=== PATIENT | male | born 1940 | race Caucasian/White ===

== ENCOUNTER 2018-01-01 10:05 | Emergency (ER) | payer OTHER, MEDICARE ==
[2018-01-01 10:20] VITALS: BP 117/76; PULSE 72; BMI 26.7
--- NOTE | 2018-01-01 10:39 | PDOC ---
History of Present Illness - General Chief Complaint: Laceration Stated Complaint: LEFT PALM LACERATION Time Seen by Provider: 01/01/18 10:33 History Source: Patient Exam Limitations: No Limitations - History of Present Illness Initial Comments: 77 yo M history polycythemia presents with laceration to the L hand. He states he was opening a can with a knife last night 7pm, accidentally stabbed his left hand with the knife. C/o mild numbness to the L 4th finger. He has been holding pressure on the wound since last night, but was unable to come to ED, as his relies on him and he was unable to leave her. The bleeding had stopped last night, but then started again this morning. Denies lightheadedness, weakness. Past History - Past Medical History Allergies/Adverse Reactions: Allergies Allergy/AdvReac Type Severity Reaction Status Date / Time hydroxyurea [From Hydrea] Allergy Severe Laberynthit Verified 01/01/18 12:07 is/Fever hay fever Allergy Unknown Uncoded 01/01/18 12:07 Home Medications: Ambulatory Orders Aspirin [Aspir 81] 162 mg PO DAILY #1 05/29/13 Cephalexin Monohydrate [Keflex -] 500 mg PO Q6H #28 capsule 01/01/18 Anemia: Yes (POLYCYTHEMIA VERA) COPD: No Other medical history: LYME'S DISEASE - Suicide/Smoking/Psychosocial Hx Smoking History: Never smoked Number of Cigarettes Smoked Daily: 0 Hx Alcohol Use: No Drug/Substance Use Hx: No Substance Use Type: None Review of Systems - Review of Systems Able to Perform ROS?: Yes Comments:: GENERAL/CONSTITUTIONAL: No fever or chills. No weakness. MUSCULOSKELETAL: No joint or muscle swelling or pain. No neck or back pain. SKIN: +L hand laceration NEUROLOGIC: No headache, vertigo, loss of consciousness, or change in strength/ sensation. ENDOCRINE: No increased thirst. No abnormal weight change. HEMATOLOGIC/LYMPHATIC: +Polycythemia. On aspirin. *Physical Exam - Vital Signs Last Vital Signs Temp Pulse Resp BP Pulse Ox 72 16 117/76 01/01/18 10:12 01/01/18 10:12 01/01/18 10:12 - Physical Exam Comments: GENERAL: Awake, alert, and fully oriented, in no acute distress HEAD: No signs of trauma EXTREMITIES: L hand with 1.5 cm lac with intermittent bleeding when he moves the hand. Dec sensation 4th fingertip. Remainder of extremities with normal range of motion, no edema. No clubbing or cyanosis. No cords, erythema, or tenderness NEUROLOGICAL: Cranial nerves II through XII grossly intact. Normal speech, normal gait SKIN: Warm, Dry, normal turgor, no rashes or lesions noted. Procedures - Laceration/Wound Repair Left Medial Volar Hand Wound Length: to 2.5 cm Wound Explored: clean, no foreign body present Wound's Depth, Shape: linear Irrigated w/ Saline: Yes Anesthesia: 1% Lidocaine Amount of Anesthetic (ccs): 3 Wound Repaired With: Sutures Suture Size/Type: 4:0 Number of Sutures: 4 Sterile Dressing Applied: Yes Progress: 01/01/18 10:40 Tourniquet placed to minimize bleeding in the field during repair. Suture was placed to middle of the wound for hemostasis to allow me to irrigate. Irrigated with sterile saline, afterwards, 3 additional sutures placed. Pressure dressing placed. ED Treatment Course - LABORATORY CBC & Chemistry Diagram: 01/01/18 10:45 Medical Decision Making - Medical Decision Making 01/01/18 10:41 Will monitor patient in ED to make sure he does not have an expanding hematoma. 01/01/18 12:07 Pt monitored in ED, no expanding hematoma. Counseled him not to take his aspirin for today and tomorrow to prevent bleeding. Hb stable from prior results. *DC/Admit/Observation/Transfer Diagnosis at time of Disposition: Laceration of hand Qualifiers: Encounter type: initial encounter Foreign body presence: without foreign body Laterality: left Qualified Code(s): S61.412A - Laceration without foreign body of left hand, initial encounter - Discharge Dispostion Disposition: HOME Condition at time of disposition: Stable Decision to Admit order: No - Prescriptions Prescriptions: Cephalexin Monohydrate [Keflex -] 500 mg PO Q6H #28 capsule - Referrals Referrals: Hemal Portillo MD [Primary Care Provider] - - Patient Instructions Printed Discharge Instructions: DI for Laceration Repair Additional Instructions: KEEP YOUR WOUND DRY FOR THE NEXT 48 HOURS. AFTER THAT YOU MAY CHANGE THE BANDAGE. AFTER 48 HOURS IT IS OK TO GET IT WET, BUT NO LOTIONS, CREAMS, SOAPS, OR OINTMENTS. KEEP IT COVERED WITH A DRY GAUZE AFTER YOU SHOWER. RETURN TO THE ER IMMEDIATELY IF YOU HAVE SEVERE PAIN, NUMBNESS, HEAVY BLEEDING, REDNESS, OR FEVER. RETURN TO HAVE STITCHES REMOVED BETWEEN 01/10-01/12. - Post Discharge Activity
[2018-01-01 10:59] LABS: BASO % 0.8 % (0-2.0); EOS % 11.7 % (0-4.5); HEMATOCRIT 45.4 % (35.4-49); HEMOGLOBIN 14.3 GM/dl (11.7-16.9); LYMPH % 15.1 % (8-40); MCH 23.5 pg (25.7-33.7); MCHC 31.6 g/dl (32.0-35.9); MEAN CELL VOLUME 74.4 fl (80-96); MONO % 5.1 % (3.8-10.2); NEUT % 67.3 % (42.8-82.8); PLATELET COUNT 371 K/MM3 (134-434); RDW 20.7 % (11.9-15.9); WHITE BLOOD COUNT 11.1 K/mm3 (4.0-10.8)
[2018-01-01 11:25] LABS: ADD RBC MORPHOLOGY YES
[2018-01-01] MEDS ORDERED: DIPHTH,PERTUSS(ACELL),TET VAC 0.5 ML VIAL IM ONE (12:10)
[2018-01-01] MEDS ORDERED: CEPHALEXIN MONOHYDRATE 500 MG CAPSULE (UD) PO ONE (12:10)
[2018-01-01] MEDS ORDERED: CEPHALEXIN MONOHYDRATE 500 MG CAPSULE (UD) ONE (12:15)
[2018-01-01 19:54] LABS: ANISOCYTOSIS 3+; PLATELET ESTIMATE ADEQUATE
== END 2018-01-01 12:20 | disposition home or self-care (01) ==
LOC: FER 10:05
PROC: 0HQGXZZ Repair Left Hand Skin, External Approach (ICD-10-PCS; principal; 2018-01-01)
PROC: 3E0234Z Introduction of Serum, Toxoid and Vaccine into Muscle, Percutaneous Approach (ICD-10-PCS; 2018-01-01)
DX: S61.412A Laceration without foreign body of left hand, initial encounter (principal); W26.9XXA Contact with unspecified sharp object(s), initial encounter; Y93.G1 Activity, food preparation and clean up; Y92.89 Other specified places as the place of occurrence of the external cause; D75.1 Secondary polycythemia; A69.20 Lyme disease, unspecified
CPT/HCPCS: 36415; 85025; 99282-25

== ENCOUNTER 2018-01-10 11:53 | Emergency (ER) | payer OTHER, MEDICARE ==
[2018-01-10 12:04] VITALS: BP 103/61; PULSE 71; TEMP 97.7; BMI 26.7
--- NOTE | 2018-01-10 12:53 | PDOC ---
Suture Removal/Wound Check HPI - History of Present Illness Chief Complaint: Suture/Staple Removal(Here) Stated Complaint: SUTURE REMOVAL LEFT HAND Time Seen by Provider: 01/10/18 12:34 - Onset of Previous Treatment Comment:: 01/10/18 13:11 Sutures removed from the palm of the left hand. 2 cm laceration well healed. Edges well approximated. No warmth, erythema, or drainage suggestive of infection. Nontender. Flexor tendon function intact. Scrubbed with saline, dressed with bacitracin, recheck as needed. Past History - Past Medical History Allergies/Adverse Reactions: Allergies Allergy/AdvReac Type Severity Reaction Status Date / Time hydroxyurea [From Hydrea] Allergy Severe Laberynthit Verified 01/01/18 12:07 is/Fever hay fever Allergy Unknown Uncoded 01/01/18 12:07 Home Medications: Ambulatory Orders Aspirin [Aspir 81] 162 mg PO DAILY #1 05/29/13 Anemia: Yes (POLYCYTHEMIA VERA) COPD: No - Suicide/Smoking/Psychosocial Hx Smoking History: Former smoker Have you smoked in the past 12 months: No Number of Cigarettes Smoked Daily: 0 If you are a former smoker, when did you quit?: 50 YEARS Information on smoking cessation initiated: No Hx Alcohol Use: No Drug/Substance Use Hx: No Substance Use Type: None *Physical Exam - Vital Signs Last Vital Signs Temp Pulse Resp BP Pulse Ox 97.7 F 71 16 103/61 99 01/10/18 11:54 01/10/18 11:54 01/10/18 11:54 01/10/18 11:54 01/10/18 11:54 *DC/Admit/Observation/Transfer Diagnosis at time of Disposition: Visit for suture removal - Discharge Dispostion Disposition: HOME Condition at time of disposition: Improved Decision to Admit order: No - Referrals - Patient Instructions Printed Discharge Instructions: DI for Suture Removal - Post Discharge Activity
== END 2018-01-10 12:58 | disposition home or self-care (01) ==
LOC: FER 11:53
DX: Z48.02 Encounter for removal of sutures (principal)
CPT/HCPCS: 99281-25

== ENCOUNTER 2018-12-12 07:06 | Inpatient (IN) | payer OTHER, MEDICARE ==
--- NOTE | 2018-12-12 07:34 | PDOC ---
History of Present Illness - General Chief Complaint: Nausea/Vomiting Stated Complaint: VOMITING X 2 DAYS,GROIN PAIN Time Seen by Provider: 12/12/18 07:13 History Source: Patient (Patient walked in with a history of nausea and vomiting x 2 days, right groin pain. No diarrhea.) Exam Limitations: No Limitations - History of Present Illness Is this a multiple visit Asthma Patient?: No Severity: moderate Past History - Travel Traveled outside of the country in the last 30 days: No Close contact w/someone who was outside of country & ill: No - Past Medical History Allergies/Adverse Reactions: Allergies Allergy/AdvReac Type Severity Reaction Status Date / Time hydroxyurea [From Hydrea] Allergy Severe Laberynthit Verified 12/12/18 07:08 is/Fever hay fever Allergy Unknown Uncoded 01/01/18 12:07 Home Medications: Ambulatory Orders Aspirin [Aspir 81] 162 mg PO DAILY #1 05/29/13 Anemia: No (POLYCYTHEMIA VERA) COPD: No - Psycho Social/Smoking Cessation Hx Smoking History: Former smoker Have you smoked in the past 12 months: No Number of Cigarettes Smoked Daily: 0 If you are a former smoker, when did you quit?: 50 YEARS Hx Alcohol Use: No Drug/Substance Use Hx: No Substance Use Type: None Review of Systems - Review of Systems Able to Perform ROS?: Yes Is the patient limited [place] proficient: Yes Constitutional: Yes: Symptoms Reported, Malaise HEENTM: No: Symptoms Reported, See HPI, Eye Pain, Blurred Vision, Tearing, Recent change in vision, Double Vision, Cataracts, Ear Pain, Ocular Prothesis, Ear Discharge, Nose Pain, Nose Congestion, Tinnitus, Nose Bleeding, Hearing Loss , Throat Pain, Throat Swelling, Mouth Pain, Dental Problems, Difficulty Swallowing, Mouth Swelling, Other Respiratory: No: Symptoms reported, See HPI, Cough, Orthopnea, Shortness of Breath, SOB with Exertion, SOB at Rest, Stridor, Wheezing, Productive cough, Hemoptysis, Other Cardiac (ROS): No: Symptoms Reported, See HPI, Chest Pain, Edema, Irregular Heart Rate, Lightheadedness, Palpitations, Syncope, Chest Tightness, Other ABD/GI: Yes: Symptoms Reported, See HPI, Nausea, Poor Fluid Intake, Vomiting : No: Symptoms Reported, See HPI, Burning, Dysuria, Discharge, Frequency, Flank Pain, Hematuria, Incontinence, Pain, Urgency, Testicular Mass, Testicular Swelling, Lesions, Testicular Pain, Other Musculoskeletal: No: Symptoms Reported, See HPI, Back Pain, Gout, Joint Pain, Joint Swelling, Muscle Pain, Muscle Weakness, Neck Pain, Joint Stiffness, Other Integumentary: No: Symptoms Reported, See HPI, Bruising, Change in Color, Change in Hair/Nails, Dryness, Erythema, Flushing, Lesions, Lumps, Pallor, Pruritus, Rash, Sweating, Other Neurological: No: Symptoms reported, See HPI, Headache, Numbness, Paresthesia, Pre-Existing Deficit, Seizure, Tingling, Tremors, Weakness, Unsteady Gait, Ataxia, Dizziness, Other Psychiatric: No: Anxiety, Depression, Frequent Crying, Stressors, Sleep Pattern Change, Emotional Problems, Mood Swings, Change in Appetite, Other All Other Systems: Reviewed and Negative *Physical Exam - Physical Exam General Appearance: Yes: Nourished, Appropriately Dressed, Moderate Distress HEENT: positive: CARLOS, Normal ENT Inspection, Normal Voice Neck: positive: Trachea midline, Normal Thyroid, Supple Respiratory/Chest: positive: Lungs Clear, Normal Breath Sounds Cardiovascular: positive: Regular Rate, S1, S2 Gastrointestinal/Abdominal: positive: Normal Bowel Sounds, Tender (right inguinal canal moderate tenderness , no reducible hernia possible) Male Genitalia: positive: other Musculoskeletal: positive: Normal Inspection Extremity: positive: Normal Capillary Refill, Normal Inspection Integumentary: positive: Normal Color, Dry, Warm Neurologic: positive: Fully Oriented, Alert, Normal Mood/Affect Heart Score/ECG Review - Age Age: >/= 65 - Risk Factors Risk Factors Heart Score: Yes Hx Hypertension - ECG Intrepretation Rhythm: Regular Rhythm - [place]: Normal ED Treatment Course - LABORATORY CBC & Chemistry Diagram: 12/13/18 06:11 12/13/18 06:11 Medical Decision Making - Critical Care Time Total Critical Care Time (minutes): 30 Critical Care Statement: The care of this patient involved high complexity decision making to prevent further life threatening deterioration of the patient 's condition and/or to evaluate & treat vital organ system(s) failure or risk of failure. - Medical Decision Making Based on the history, physical exam, and ancillary testing, dg of incarcerated right inguinal hernia with intestinal obstruction Admitting MD called , spoke with [facility] MECHANIC. Dr Jett callediin consult To be admitted to [facility]/19 11:45 Discharge - Discharge Information Problems reviewed: Yes Clinical Impression/Diagnosis: Intestinal obstruction due to recurrent inguinal hernia Condition: Stable - Admission Yes - Follow up/Referral - Patient Discharge Instructions - Post Discharge Activity
[2018-12-12] MEDS ORDERED: ONDANSETRON 4 MG/2 ML VIAL IVPUSH ONE (07:39)
[2018-12-12] MEDS ORDERED: SODIUM CHLORIDE 1,000 ML IV STA ×2 (07:39→09:53)
[2018-12-12 08:04] LABS: MCH 23.5 pg (25.7-33.7)
[2018-12-12 08:06] LABS: INR 1.27 (0.82-1.09); PROTHROMBIN TIME (PATIENT) 14.1 SEC (10.2-13.0)
[2018-12-12 08:10] LABS: ALBUMIN 4.6 g/dl (3.4-5.0); BILIRUBIN,TOTAL 1.3 mg/dl (0.2-1); CALCIUM 10.3 mg/dl (8.5-10); CREATININE 1.7 mg/dl (0.55-1.3); POTASSIUM 4.1 mmol/L (3.5-5.1); TOT PROT 8.5 g/dl (6.4-8.2)
[2018-12-12 08:23] LABS: HEMATOCRIT 53.7 % (35.4-49); HEMOGLOBIN 16.5 GM/dl (11.7-16.9); MCHC 30.7 g/dl (32.0-35.9); MEAN CELL VOLUME 76.6 fl (80-96); MEAN PLT VOLUME 9.3 fl (7.5-11.1); PLATELET COUNT 412 K/MM3 (134-434); RDW 19.3 % (11.9-15.9); WHITE BLOOD COUNT 18.9 K/mm3 (4.0-10.8)
[2018-12-12 09:05] LABS: RBC 7.01 M/mm3 (4.00-5.60)
[2018-12-12 09:06] LABS: ADD RBC MORPHOLOGY YES
[2018-12-12 09:08] LABS: ANISOCYTOSIS 2+
[2018-12-12 09:09] LABS: MACROCYTOSIS FEW; PLATELET ESTIMATE ADEQUATE
--- NOTE | 2018-12-12 10:26 | EKG ---
Test Reason : Blood Pressure : / mmHG Vent. Rate : 067 BPM Atrial Rate : 067 BPM P-R Int : 146 ms QRS Dur : 084 ms QT Int : 408 ms P-R-T Axes : 081 -22 019 degrees QTc Int : 431 ms NORMAL SINUS RHYTHM NORMAL ECG NO PREVIOUS ECGS AVAILABLE Confirmed by DAVID SORENSEN, MELCHOR ([id number]) on 12/12/2018 10:25:57 AM Referred By: MARILEE MONROY Confirmed By:MELCHOR HERNANDEZ MD
--- NOTE | 2018-12-12 11:44 | HP ---
CHIEF COMPLAINT: Right groin pain, nausea, vomiting PCP: Dr. Esparza/[place] Coordinator: Chinyere [place] HISTORY OF PRESENT ILLNESS: 78 year-old male with a PMH significant for polycythemia vera and BPH, presented to the ED for evaluation of right groin pain, nausea, and vomiting x [address] imaging shows a moderate size right inguinal hernia containing fat and small bowel loops. Patient is pending transfer to [facility] for surgery with Dr. Jett. 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; ( October 2018) ; lives in [place] Smoking: quit 1967 Alcohol: no Drugs: no Allergies hydroxyurea [From Hydrea] Allergy (Severe, Verified 12/12/18 07:08) Laberynthitis/Fever hay fever Allergy (Unknown, Uncoded 01/01/18 12:07) Family history: non-contributory HOME MEDICATIONS: Home Medications Medication Instructions Recorded Aspirin [Aspir 81] 162 mg PO DAILY #1 05/29/13 REVIEW OF SYSTEMS CONSTITUTIONAL: Absent: fever, chills, diaphoresis, generalized weakness, malaise, loss of appetite, weight change HEENT: Absent: rhinorrhea, nasal congestion, throat pain, throat swelling, difficulty swallowing, mouth swelling, ear pain, eye pain, visual changes CARDIOVASCULAR: Absent: chest pain, syncope, palpitations, irregular heart rate, lightheadedness , peripheral edema RESPIRATORY: Absent: cough, shortness of breath, dyspnea with exertion, orthopnea, wheezing, stridor, hemoptysis GASTROINTESTINAL: +right groin pain, nausea, vomiting Absent: abdominal pain, abdominal distension, nausea, vomiting, diarrhea, constipation, melena, hematochezia GENITOURINARY: Absent: dysuria, frequency, urgency, hesitancy, hematuria, flank pain, genital pain MUSCULOSKELETAL: Absent: myalgia, arthralgia, joint swelling, back pain, neck pain SKIN: Absent: rash, itching, pallor HEMATOLOGIC/IMMUNOLOGIC: Absent: easy bleeding, easy bruising, lymphadenopathy, frequent infections ENDOCRINE: Absent: unexplained weight gain, unexplained weight loss, heat intolerance, cold intolerance NEUROLOGIC: Absent: headache, focal weakness or paresthesias, dizziness, unsteady gait, seizure, mental status changes, bladder or bowel incontinence PSYCHIATRIC: Absent: anxiety, depression, suicidal or homicidal ideation, hallucinations. PHYSICAL EXAMINATION Vital Signs - 24 hr 12/12/18 12/12/18 07:16 10:50 Temperature 98.4 F 98.6 F Pulse Rate 91 H Pulse Rate [ 78 Apical] Respiratory 18 19 Rate Blood Pressure 144/99 Blood Pressure 138/78 [Arm] O2 Sat by Pulse 97 96 Oximetry (%) GENERAL: Awake, alert, and fully oriented, in no acute distress. HEAD: Normal with no signs of trauma. EYES: Pupils equal, round and reactive to light, extraocular movements intact, sclera anicteric, conjunctiva clear. No lid lag. EARS, NOSE, THROAT: Ears normal, nares patent, oropharynx clear without exudates. Moist mucous membranes. NECK: Normal range of motion, supple without lymphadenopathy, JVD, or masses. LUNGS: Breath sounds equal, clear to auscultation bilaterally. No wheezes, and no crackles. No accessory muscle use. HEART: Regular rate and rhythm, normal S1 and S2 ABDOMEN: Soft, nontender, not distended; no groin tenderness appreciated MUSCULOSKELETAL: Normal range of motion at all joints. No bony deformities or tenderness. No CVA tenderness. UPPER EXTREMITIES: 2+ pulses, warm, well-perfused. No cyanosis. No clubbing. No peripheral edema. LOWER EXTREMITIES: 2+ pulses, warm, well-perfused. No calf tenderness. No peripheral edema. NEUROLOGICAL: Cranial nerves II-XII intact. Normal speech. Laboratory Results - last 24 hr 12/12/18 12/12/18 12/12/18 07:45 07:45 07:45 WBC 18.9 H RBC 7.01 H Hgb 16.5 Hct 53.7 H MCV 76.6 L MCH 23.5 L MCHC 30.7 L RDW 19.3 H Plt Count 412 MPV 9.3 Absolute Neuts (auto) 16.3 Neutrophils % No Result Required. Neutrophils % (Manual) 91.0 H* Lymphocytes % No Result Required. Lymphocytes % (Manual) 6.0 L Monocytes % (Manual) 3 L Hypochromia 1+ Platelet Estimate Adequate Poikilocytosis 1+ Anisocytosis 2+ Macrocytosis Few PT with INR INR Sodium 141 Potassium 4.1 Chloride 102 Carbon Dioxide 26 Anion Gap 13 BUN 30.0 H Creatinine 1.7 H Est GFR (CKD-EPI)AfAm 44.10 Est GFR (CKD-EPI)NonAf 38.05 Random Glucose 150 H Calcium 10.3 H Total Bilirubin 1.3 H AST 28 ALT 28 Alkaline Phosphatase 68 Troponin I Total Protein 8.5 H Albumin 4.6 Total Amylase Lipase 123 Urine Color Urine Appearance Urine pH Urine Protein Urine Glucose (UA) Urine Ketones Urine Blood Urine Nitrite Urine Bilirubin Urine Urobilinogen Ur Leukocyte Esterase 12/12/18 12/12/18 12/12/18 07:45 07:45 07:45 WBC RBC Hgb Hct MCV MCH MCHC RDW Plt Count MPV Absolute Neuts (auto) Neutrophils % Neutrophils % (Manual) Lymphocytes % Lymphocytes % (Manual) Monocytes % (Manual) Hypochromia Platelet Estimate Poikilocytosis Anisocytosis Macrocytosis PT with INR 14.1 H INR 1.27 H Sodium Potassium Chloride Carbon Dioxide Anion Gap BUN Creatinine Est GFR (CKD-EPI)AfAm Est GFR (CKD-EPI)NonAf Random Glucose Calcium Total Bilirubin AST ALT Alkaline Phosphatase Troponin I < 0.03 Total Protein Albumin Total Amylase 76 Lipase Urine Color Urine Appearance Urine pH Urine Protein Urine Glucose (UA) Urine Ketones Urine Blood Urine Nitrite Urine Bilirubin Urine Urobilinogen Ur Leukocyte Esterase 12/12/18 11:10 WBC RBC Hgb Hct MCV MCH MCHC RDW Plt Count MPV Absolute Neuts (auto) Neutrophils % Neutrophils % (Manual) Lymphocytes % Lymphocytes % (Manual) Monocytes % (Manual) Hypochromia Platelet Estimate Poikilocytosis Anisocytosis Macrocytosis PT with INR INR Sodium Potassium Chloride Carbon Dioxide Anion Gap BUN Creatinine Est GFR (CKD-EPI)AfAm Est GFR (CKD-EPI)NonAf Random Glucose Calcium Total Bilirubin AST ALT Alkaline Phosphatase Troponin I Total Protein Albumin Total Amylase Lipase Urine Color Dark Urine Appearance Slightly Urine pH 6.5 Urine Protein 2+ H Urine Glucose (UA) Negative Urine Ketones Negative Urine Blood Trace-intact Urine Nitrite Negative Urine Bilirubin 1+ H Urine Urobilinogen 1.0 Ur Leukocyte Esterase Negative ASSESSMENT/PLAN: 78 year-old male with a PMH significant for polycythemia vera and BPH, presented to the ED for evaluation of right groin pain, nausea, and vomiting x [address] imaging shows a moderate size right inguinal hernia containing fat and small bowel loops. Patient is pending transfer to [facility] for surgery with Dr. Jett. Right inguinal incarcerated hernia --WBC 18.9, afebrile --NS x 2L in ED; continue LR @125mL/hr --start Zosyn --takes daily ASA, last dose on 12/09 Elevated Cr --Cr 1.7, baseline 1.2 --little PO intake over past 48 hours --IV fluids Polycythemia vera --last phlebotomy [address] Lazaro BPH --not on meds DVT prophylaxis: SCDs Visit type - Emergency Visit Emergency Visit: Yes Care time: The patient presented to the Emergency Department on the above date and was hospitalized for further evaluation of their emergent condition. - New Patient This patient is new to me today: Yes Date on this admission: 12/12/18 - Critical Care Critical Care patient: No
[2018-12-12] MEDS ORDERED: PIPERACILLIN/TAZOBACTAM 3.375 GM VIAL IVPB ONE (11:49)
[2018-12-12 12:06] LABS: EPITHELIAL CELLS FEW /hpf; URINE HYALINE CAST 0-2 /lpf; URINE MUCUS 1+
[2018-12-12] MEDS: PIPERACILLIN/TAZOB 3.375 GM 3.375 GM in DEXTROSE 5%-WATER - 50 ML IVPB SCH ×2 (12:07→17:36)
[2018-12-12] MEDS ORDERED: ACETAMINOPHEN 1000 MG/100 ML VIAL (NON FORMULARY) IVPB SCH (12:15)
[2018-12-12] MEDS ORDERED: ACETAMINOPHEN INJECTION 100 ML IVPB ONE ×2 (12:36→18:30)
[2018-12-12] MEDS ORDERED: LACTATED RINGERS SOLUTION 1,000 ML/1,000 ML INFUS.BAG IV SCH ×2 (12:45→18:13)
[2018-12-12 15:04] VITALS: BMI 30.9
--- NOTE | 2018-12-12 15:09 | CONSULT ---
- Consultation REQUESTING PROVIDER: Cindy Alcazar MMI TEACHER CONSULT REQUEST: We have been asked to surgically evaluate this patient for an incarcerated right inguinal hernia PCP:Tre Power MD HISTORY OF PRESENT ILLNESS: EDWIGE who is a 78 y/o white male who presented with a history of nausea and vomiting x 2 days and right groin pain. A w/u was done ehich revelaed an incarcerated right inguinal hernia on CT scanning; he was not aware that he had an inguinal hernia; he denies any other GI/ c/o. PMHx: poycythemia vera PSHx: none Home Medications Medication Instructions Recorded Aspirin [Aspir 81] 162 mg PO DAILY #1 05/29/13 Allergies Allergy/AdvReac Type Severity Reaction Status Date / Time hydroxyurea [From Hydrea] Allergy Severe Laberynthit Verified 12/12/18 07:08 is/Fever hay fever Allergy Unknown Uncoded 01/01/18 12:07 REVIEW OF SYSTEMS: CONSTITUTIONAL: Absent: fever, chills, diaphoresis, generalized weakness, malaise, loss of appetite, weight change CARDIOVASCULAR: Absent: chest pain, syncope, palpitations, irregular heart rate, lightheadedness , peripheral edema RESPIRATORY: Absent: cough, shortness of breath, dyspnea with exertion, wheezing, stridor, hemoptysis GASTROINTESTINAL: Present: abdominal pain, abdominal distension, nausea, vomiting. GENITOURINARY: Absent: dysuria, frequency, urgency, hesitancy, hematuria, flank pain, genital pain MUSCULOSKELETAL: Absent: myalgia, arthralgia, joint swelling, back pain, neck pain SKIN: Absent: rash, itching, pallor HEMATOLOGIC/IMMUNOLOGIC: Absent: easy bleeding, easy bruising, lymphadenopathy NEUROLOGIC: Absent: headache, focal weakness, paresthesias, dizziness, unsteady gait, seizure, mental status changes, bladder or bowel incontinence PSYCHIATRIC: Absent: anxiety, depression, suicidal or homicidal ideation, hallucinations. PHYSICAL EXAM: GENERAL: Awake, alert, and fully oriented, in no acute distress. HEAD: Normal with no signs of trauma. EYES: sclera anicteric, conjunctiva clear. NECK: Normal ROM, supple without lymphadenopathy, JVD, or masses. ABDOMEN: Soft, nontender, distended and tympanitic, normoactive bowel sounds, no guarding, no rebound, no masses. No organomegaly. Incarcerated RIH; no LIH; GENITALIA: Both testes are descended MUSCULOSKELETAL: Normal ROM at all joints. No bony deformities or tenderness. No CVA tenderness. UPPER EXTREMITIES: 2+ pulses, warm, well-perfused. No cyanosis. Cap refill <2 seconds. No peripheral edema. LOWER EXTREMITIES: 2+ pulses, warm, well-perfused. No calf tenderness. No peripheral edema. NEUROLOGICAL: Normal speech, gait not observed. PSYCH: Cooperative. Good eye contact. Appropriate mood and affect. SKIN: Warm, dry, normal turgor, no rashes or lesions noted. Vital Signs Temperature 98.1 F 12/12/18 12:48 Pulse Rate 60 12/12/18 12:48 Respiratory Rate 17 12/12/18 12:48 Blood Pressure 124/68 12/12/18 12:48 O2 Sat by Pulse Oximetry (%) 97 12/12/18 12:48 Lab Results WBC 18.9 K/mm3 (4.0-10.8) H 12/12/18 07:45 RBC 7.01 M/mm3 (4.00-5.60) H 12/12/18 07:45 Hgb 16.5 GM/dl (11.7-16.9) 12/12/18 07:45 Hct 53.7 % (35.4-49) H 12/12/18 07:45 MCV 76.6 fl (80-96) L 12/12/18 07:45 MCHC 30.7 g/dl (32.0-35.9) L 12/12/18 07:45 RDW 19.3 % (11.9-15.9) H 12/12/18 07:45 Plt Count 412 K/MM3 (134-434) 12/12/18 07:45 Sodium 141 mmol/L (136-145) 12/12/18 07:45 Potassium 4.1 mmol/L (3.5-5.1) 12/12/18 07:45 Chloride 102 mmol/L (98-107) 12/12/18 07:45 Carbon Dioxide 26 mmol/L (21-32) 12/12/18 07:45 Anion Gap 13 MMOL/L (8-16) 12/12/18 07:45 BUN 30.0 mg/dl (7-18) H 12/12/18 07:45 Creatinine 1.7 mg/dl (0.55-1.3) H 12/12/18 07:45 Random Glucose 150 mg/dl (74-106) H 12/12/18 07:45 Calcium 10.3 mg/dl (8.5-10) H 12/12/18 07:45 Blood Type O POSITIVE 12/12/18 12:05 INR 1.27 (0.82-1.09) H 12/12/18 07:45 CT a/p reviewed images and report IMP: Incarcerated right inguinal hernia PLAN: Open repair incarcerated right inguinal hernia; possible small bowel resection; possible mesh; r/b/t/a/'s d/w the patient and his daughter Miguelina via telephone; possible recurrence discussed as well; informed consent obtained. Yimi Jett MD FACS
[2018-12-12] MEDS ORDERED: ACETAMINOPHEN 325 MG TABLET (FP) PO PRN (15:22)
[2018-12-12] MEDS ORDERED: BUPIVACAINE HCL/PF 0.5% (5 MG/ML) 30 ML VIAL IJ ONE (15:38)
[2018-12-12] MEDS ORDERED: LIDOCAINE HCL 1%, 10 MG/ML (20ML VIAL) ONE (15:38)
[2018-12-12] MEDS ORDERED: PROPOFOL 20 ML ONE ×2 (15:46→17:15)
[2018-12-12] MEDS ORDERED: MINERAL OIL/PETROLATUM,WHITE 3.5 GM TUBE ONE (17:29)
[2018-12-12] MEDS ORDERED: oxyCODONE HCL 5 MG TABLET PO PRN ×2 (17:55→18:13)
[2018-12-12] MEDS ORDERED: ONDANSETRON 4 MG/2 ML VIAL IVPUSH PRN ×2 (17:55→18:13)
--- NOTE | 2018-12-12 17:56 | OP ---
Operative Note - Note: Operative Date: 12/12/18 Pre-Operative Diagnosis: incarcerated right inguinal hernia Operation: repair incarcerated right inguinal hernia w/mesh Findings: incarcerated right inguinal hernia w/ viable small bowel Surgeon: Yimi Jett Relief Pharmacist: Tai Holt Anesthesiologist/ACCOUNTS RECEIVABLE CLERK: Quinn Terrell Anesthesia: General Specimens Removed: hernia sac Estimated Blood Loss (mls): 25
--- NOTE | 2018-12-12 17:57 | SURG ---
Surgery Hot Blaster Note Hot Blaster: Tai Holt PA-C Date of Service: 12/12/18 Diagnosis: incarcerated right inguinal hernia Procedure: repair incarcerated right inguinal hernia w/mesh I was present for the entirety of the operative procedure. For further detail, please refer to operative report. Visit type - Case Type Case Type: ED Admission - Emergency Emergency Visit: Yes ED Registration Date: 12/12/18 Care time: The patient presented to the Emergency Department on the above date and was hospitalized for further evaluation of their emergent condition. - New patient This patient is new to me today: Yes Date on this admission: 12/12/18 - Critical Care Critical Care patient: No
[2018-12-12] MEDS ORDERED: ACETAMINOPHEN 1000 MG/100 ML VIAL (NON FORMULARY) IVPB ONE (18:00)
[2018-12-12] MEDS ORDERED: DEXTROSE 5%-0.45% SALINE 1,000 ML IV SCH (18:13)
[2018-12-13 07:35] LABS: ALBUMIN 3.4 g/dl (3.4-5.0); BILIRUBIN,TOTAL 1.1 mg/dL (0.2-1); BLOOD UREA NITROGEN 39.7 mg/dL (7-18); CALCIUM 8.7 mg/dL (8.5-10.1); CREATININE 1.9 mg/dL (0.55-1.3); MAGNESIUM 2.2 mg/dL (1.8-2.4); TOT PROT 6.4 g/dl (6.4-8.2)
[2018-12-13] MEDS ORDERED: HEPARIN NA (PORCINE) 5,000 UNITS/ML 1ML VIAL SQ SCH (08:00)
[2018-12-13 09:12] LABS: BASO % 0.3 % (0-2.0); EOS % 0.1 % (0-4.5); HEMATOCRIT 43.3 % (35.4-49); HEMOGLOBIN 13.3 GM/dL (11.7-16.9); LYMPH % 5.8 % (8-40); MCH 23.2 pg (25.7-33.7); MCHC 30.8 g/dl (32.0-35.9); MEAN CELL VOLUME 75.3 fl (80-96); MEAN PLT VOLUME 8.7 fl (7.5-11.1); MONO % 6.1 % (3.8-10.2); NEUT % 87.7 % (42.8-82.8); PLATELET COUNT 319 K/MM3 (134-434); RBC 5.75 M/mm3 (4.00-5.60); RDW 20.2 % (11.9-15.9); WHITE BLOOD COUNT 20.3 K/mm3 (4.0-10.0)
--- NOTE | 2018-12-13 09:46 | PN ---
Progress Note (short form) - Note Progress Note: POD #1 repair incarcerated right inguinal hernia w/mesh Patient seen and examined at bedside with no complaints. Patient states he has been urinating without difficulty, and his pain is controlled. He has not been OOB yet bt he denies any CP, SOB, N/V, fever or chills. Vital Signs Temp 99.1 F 10 06:55 Pulse 67 12/13/18 06:55 Resp 20 12/13/18 06:55 BP 102/57 L 12/13/18 06:55 Pulse Ox 96 12/12/18 21:00 Intake & Output 12/12/18 12/12/18 12/13/18 11:59 23:59 11:59 Intake Total 1100 2000 Output Total 150 225 Balance 950 1775 Weight 260 lb 247 lb 1 oz Intake: IV 1000 1800 LACTATED RINGERS SOLUTION 300 1,000 ml In 1,000 ml @ 125 mls/hr IV ASDIR MATTHEW Rx#:[id number] Normal Saline - 1,000 ml 1000 @ 1000 mls/hr IV ASDIR STA Rx#:[id number] SALINE 1000 IVPB 100 200 Output: Urine 150 200 Void 150 Estimated Blood Loss 25 Other: Voiding Method Urinal Bowel Movement No Height 6 ft 3 in 6 ft 3 in Body Mass Index (BMI) 32.5 30.9 Weight Measurement Method Standing Scale Weight Measurement Method Est/Stated by Patient CBC, BMP 12/13/18 06:11 12/13/18 06:11 PE: A&Ox3, NAD Unlabored resp on RA ABD: Obese, soft, NT/ ND. Dressing c/d/i with surrounding tissue intact, no tracking erythema or active d/c. mild edema. B/L LE compartments soft, supple and non-tender to palpation with +2 DP pulses. Problem List - Problems (1) Incarcerated right inguinal hernia Assessment/Plan: POD #1 doing well with slight elevation in WBCs, afebrile. -advance to clears -OOB with assist -encourage IS -trend labs Evaluation and plan discussed with Dr Jett Code(s): K40.30 - UNIL INGUINAL HERNIA, W OBST, W/O GANGR, NOT SPCF RECUR
[2018-12-13] MEDS: HEPARIN NA (PORCINE) 5,000 UNITS/ML 1ML VIAL SQ SCH ×2 (09:49→16:39)
[2018-12-13] MEDS ORDERED: PIPERACILLIN/TAZOBACTAM 2.25 GM VIAL IVPB ONE ×2 (09:52→17:06)
[2018-12-13] MEDS ORDERED: DEXTROSE 5%-WATER - 50 ML IVPB ONE ×2 (09:52→17:06)
--- NOTE | 2018-12-13 09:57 | CON.ID ---
Consult Consult Specialty:: infectious diseases Referred by:: Susan Reason for Consultation:: leukocytosis,post op - History of Present Illness Chief Complaint: abd pain,post op History of Present Illness: 78 year-old male with a PMH significant for polycythemia vera and BPH, who presented to the ED for evaluation of right groin pain, nausea, and vomiting x 2 days.patient was worked up and found to have strangulated CT imaging shows a moderate size right inguinal hernia containing fat and small bowel loops which was incarcerated he was not aware that he had an inguinal hernia; he denies any other GI/ c/o. patient seen by surgery and was taken to the operating room and underwent surgery currently patient feels woozy but better - History Source History Provided By: Patient, Medical Record Limitations to Obtaining History: Poor Historian - Past Medical History Additional Medical History: pcv,obesity - Alcohol/Substance Use Hx Alcohol Use: No - Smoking History Smoking history: Former smoker Have you smoked in the past 12 months: No Aproximately how many cigarettes per day: 0 If you are a former smoker, when did you quit?: 50 YEARS Home Medications - Allergies Allergies/Adverse Reactions: Allergies Allergy/AdvReac Type Severity Reaction Status Date / Time hydroxyurea [From Hydrea] Allergy Severe Laberynthit Verified 12/12/18 07:08 is/Fever hay fever Allergy Unknown Uncoded 01/01/18 12:07 - Home Medications Home Medications: Ambulatory Orders Aspirin [Aspir 81] 162 mg PO DAILY #1 05/29/13 Review of Systems - Review of Systems Constitutional: reports: No Symptoms Eyes: reports: No Symptoms HENT: reports: No Symptoms Neck: reports: No Symptoms Cardiovascular: reports: No Symptoms Respiratory: reports: No Symptoms Gastrointestinal: reports: Abdominal Pain Genitourinary: reports: No Symptoms Musculoskeletal: reports: No Symptoms Integumentary: reports: No Symptoms Endocrine: reports: No Symptoms Hematology/Lymphatic: reports: No Symptoms Psychiatric: reports: No Symptoms Physical Exam Vital Signs: Vital Signs Temperature 99.1 F 12/13/18 06:55 Pulse Rate 67 12/13/18 06:55 Respiratory Rate 20 12/13/18 06:55 Blood Pressure 102/57 L 12/13/18 06:55 O2 Sat by Pulse Oximetry (%) 96 12/12/18 21:00 Constitutional: Yes: Well Nourished, No Distress, Calm Cardiovascular: Yes: S1, S2 Respiratory: Yes: Regular, CTA Bilaterally Gastrointestinal: Yes: Soft, Hypoactive Bowel Sounds Musculoskeletal: Yes: WNL Extremities: Yes: WNL Neurological: Yes: Alert, Oriented Psychiatric: Yes: Alert, Oriented Labs: CBC, BMP 12/13/18 06:11 12/13/18 06:11 Assessment/Plan 78 year-old male with a PMH significant for polycythemia vera and BPH, post op now Right inguinal incarcerated hernia letty Polycythemia vera BPH leukocytosis plan we will continue zosyn for now monitor rest as per surgery
[2018-12-13] MEDS ORDERED: PIPERACILLIN/TAZOB 2.25 GM 2.25 GM in DEXTROSE 5%-WATER - 50 ML IVPB ONE (10:00)
--- NOTE | 2018-12-13 10:15 | PN ---
Physical Exam: SUBJECTIVE: Patient seen and examined at the bedside. Feels well, no pain. surgical site c/d/i reports not urinating since last night had a small bm this morning OBJECTIVE: POD #1 bladder scan now calvin, creatinine rising 1.9 wbc 20k, afebirle. id consulted for antbx therapy incentive spirometer teaching Patient is a 78 year old male with a past medical history significant for polycythemia vera and BPH. He presented to the ED for evaluation of right groin pain, nausea, and vomiting x [address] imaging shows a moderate size right inguinal hernia containing fat and small bowel loops. He is s/p surgical repair incarcerated right inguinal hernia w/mesh. On exam, he is comfortable, denies pain or discomfort. reports urinary retention. Vital Signs Period Temp Pulse Resp BP Sys/Yung Pulse Ox Last 24 Hr 97.3 F-99.1 F 60-78 10-20 100-138/49-78 93-98 GENERAL: The patient is awake, alert, and fully oriented, in no acute distress. HEAD: Normal with no signs of trauma. EYES: PERRL, extraocular movements intact, sclera anicteric, conjunctiva clear. No ptosis. ENT: Ears normal, nares patent, oropharynx clear without exudates, moist mucous membranes. NECK: Trachea midline, full range of motion, supple. LUNGS: Breath sounds equal, clear to auscultation bilaterally HEART: Regular rate and rhythm ABDOMEN: mildly distended, hypoactive bowels sounds EXTREMITIES: no edema. NEUROLOGICAL: C Normal speech, gait not observed. PSYCH: Normal mood, normal affect. SKIN: Warm, dry, normal turgor, no rashes or lesions noted Laboratory Results - last 24 hr 12/12/18 12/12/18 12/12/18 10:30 11:10 12:00 WBC RBC Hgb Hct MCV MCH MCHC RDW Plt Count MPV Absolute Neuts (auto) Neutrophils % Lymphocytes % Monocytes % Eosinophils % Basophils % Nucleated RBC % Sodium Potassium Chloride Carbon Dioxide Anion Gap BUN Creatinine Est GFR (CKD-EPI)AfAm Est GFR (CKD-EPI)NonAf Random Glucose Lactic Acid 1.9 Calcium Magnesium Total Bilirubin AST ALT Alkaline Phosphatase Total Protein Albumin Urine Color Dark Urine Appearance Slightly Urine pH 6.5 Urine Protein 2+ H Urine Glucose (UA) Negative Urine Ketones Negative Urine Blood Trace-intact Urine Nitrite Negative Urine Bilirubin 1+ H Urine Urobilinogen 1.0 Ur Leukocyte Esterase Negative Urine RBC 2-5 Urine WBC 0-2 Ur Transition Epith Cell Few Urine Bacteria Few Hyaline Casts 0-2 Urine Mucus 1+ Blood Type O POSITIVE Antibody Screen Negative 12/12/18 12/13/18 12/13/18 12:05 06:11 06:11 WBC 20.3 H RBC 5.75 H Hgb 13.3 Hct 43.3 MCV 75.3 L MCH 23.2 L MCHC 30.8 L RDW 20.2 H Plt Count 319 MPV 8.7 Absolute Neuts (auto) 17.8 H Neutrophils % 87.7 H Lymphocytes % 5.8 L Monocytes % 6.1 Eosinophils % 0.1 Basophils % 0.3 Nucleated RBC % 0 Sodium 141 Potassium 4.0 Chloride 105 Carbon Dioxide 28 Anion Gap 8 BUN 39.7 H Creatinine 1.9 H Est GFR (CKD-EPI)AfAm 38.55 Est GFR (CKD-EPI)NonAf 33.26 Random Glucose 105 Lactic Acid Calcium 8.7 Magnesium 2.2 Total Bilirubin 1.1 H AST 18 ALT 26 Alkaline Phosphatase 51 Total Protein 6.4 Albumin 3.4 Urine Color Urine Appearance Urine pH Urine Protein Urine Glucose (UA) Urine Ketones Urine Blood Urine Nitrite Urine Bilirubin Urine Urobilinogen Ur Leukocyte Esterase Urine RBC Urine WBC Ur Transition Epith Cell Urine Bacteria Hyaline Casts Urine Mucus Blood Type O POSITIVE Antibody Screen Active Medications Generic Name Dose Route Start Last Admin Trade Name Freq PRN Reason Stop Dose Admin Heparin Sodium (Porcine) 5,000 unit 12/13/18 08:00 12/13/18 09:49 Heparin - SQ 5,000 unit TID@0000,0800,1600 [facility] Administration Piperacillin Sod/Tazobactam 50 mls @ 100 mls/hr 12/13/18 10:00 12/13/18 09:55 Sod 2.25 gm/ Dextrose IVPB 12/13/18 10:29 100 mls/hr ONCE ONE Administration Protocol Piperacillin Sod/Tazobactam 50 mls @ 100 mls/hr 12/13/18 18:00 Sod 2.25 gm/ Dextrose IVPB Q8H-IV MATTHEW Protocol Lactated Ringer's 1,000 ml in 1,000 mls @ 125 mls/hr 12/13/18 10:15 Lactated Ringers Solution IV ASDIR MATTHEW Ondansetron HCl 4 mg 12/12/18 18:13 Zofran Injection IVPUSH Q6H PRN NAUSEA AND/OR VOMITING Oxycodone HCl 5 mg 12/12/18 18:13 Roxicodone - PO Q4H PRN PAIN LEVEL 1-5 ASSESSMENT/PLAN: Problem List - Problems (1) Incarcerated right inguinal hernia Assessment/Plan: POD #1 WBC elevated, no fevers, no malaise. Given Zosyn one dose, yesterday. WBC increasing. will give another dose of zosyn pending blood and urine cultures ID consulted diet advanced to clears oob with assistance trend labs incentive spirometer Code(s): K40.30 - UNIL INGUINAL HERNIA, W OBST, W/O GANGR, NOT SPCF RECUR (2) Leukocytosis Assessment/Plan: monitor. afebrile zosyn pending uc/bc. Code(s): D72.829 - ELEVATED WHITE BLOOD CELL COUNT, UNSPECIFIED (3) DVT prophylaxis Assessment/Plan: SCDs Code(s): ZGL4809 - (4) CALVIN (acute kidney injury) Assessment/Plan: elevated creat 1.9, baseline 1.2 continue hydration bladder scan now Code(s): N17.9 - ACUTE KIDNEY FAILURE, UNSPECIFIED (5) Prophylactic measure Assessment/Plan: fen LR 100 clears pain management full code Code(s): Z29.9 - ENCOUNTER FOR PROPHYLACTIC MEASURES, UNSPECIFIED Visit type - Emergency Visit Emergency Visit: Yes ED Registration Date: 12/12/18 Care time: The patient presented to the Emergency Department on the above date and was hospitalized for further evaluation of their emergent condition. - New Patient This patient is new to me today: Yes Date on this admission: 12/13/18 - Critical Care Critical Care patient: No - Discharge Referral Referred to [facility] Med P.C.: No
[2018-12-13 12:06] LABS: ANISOCYTOSIS 1+; MACROCYTOSIS 0; OVALOCYTE 1+; PLATELET ESTIMATE NORMAL
--- NOTE | 2018-12-13 12:27 | OP ---
DATE OF OPERATION: 12/12/2018 PREOPERATIVE DIAGNOSIS: Incarcerated right inguinal hernia. POSTOPERATIVE DIAGNOSIS: Incarcerated right inguinal hernia. PROCEDURE: Repair of right inguinal hernia with mesh. SURGEON: Yimi Jett MD GENERAL MAINTENANCE TECHNICIAN: AMADOR Godwin ANESTHESIA: General. OPERATIVE FINDINGS: There was an incarcerated right inguinal hernia containing small bowel. Upon opening the sac and examining the incarcerated bowel, it was found to be viable without any evidence of vascular compromise, and in addition the peritoneal fluid within the sac was clear and nonbloody. The floor of the inguinal canal was also markedly attenuated, and the rest of the findings are unremarkable. PROCEDURE: The patient was placed on the operating room table in supine position, and after the induction of general anesthesia and placement of a Parmar catheter, the patient's right groin and lower abdomen were prepped with ChloraPrep and draped in sterile fashion. A timeout was taken. A right groin incision was mapped out. An incision was made with the scalpel and taken down through skin and subcutaneous fat and Lauren fascia. The external oblique fascia was identified and opened proximally and distally through the external ring in the directions of its fibers using the scalpel. The cord structures and incarcerated hernia were then elevated to the level of the pubic tubercle and a Gema drain placed around them for retraction and identification purposes. The ilioinguinal nerve was preserved out of the operative field. The indirect sac was identified and traced up to the internal ring where it was opened, and the previously noted findings were observed. High ligation of the sac was carried out with 2-0 Vicryl suture, and excess sac was excised and sent for pathological examination. Next a piece of Parietex ProGrip mesh was fashioned to the floor of the inguinal canal and anchored to the pubic tubercle shelving edge and conjoint tendon, respectively, with interrupted 2-0 Prolene. A keyhole was created for the cord structures, and the tails of the mesh brought above the level of the internal ring and crossed and anchored there with interrupted 2-0 Prolene. Hemostasis was checked for and noted to be good, and then the wound was copiously irrigated with sterile saline. Hemostasis was again verified, and then the cord structures and nerve were returned to their normal anatomic position, and the external oblique fascia closed over them, recreating the external ring using continuous 2-0 Vicryl. Lauren fascia was reapproximated with interrupted 2-0 Vicryl, the deep dermis with interrupted 3-0 Vicryl, and the skin edges with surgical modesta. Dry sterile dressings were placed, and the procedure terminated at this point, and the patient transferred to the postanesthesia care unit in stable condition awake and alert. ESTIMATED BLOOD LOSS: 25 mL. REPLACEMENTS: Crystalloid. DRAINS: None. SPECIMENS: Hernia sac to Pathology. I, Yimi Jett MD, was physically present in the operating room from the time the patient was placed on the operating room table until he was transferred to the postanesthesia care unit in my accompaniment. MD MELA Sorenson/[id number]
--- NOTE | 2018-12-13 14:42 | PN ---
Progress Note, Physician Chief Complaint: s/p inguinal hernia repair post op day one History of Present Illness: under general anesthesia - Current Medication List Current Medications: Active Medications Heparin Sodium (Porcine) (Heparin -) 5,000 unit SQ TID@0000,0800,1600 MATTHEW Last Admin: 12/13/18 09:49 Dose: 5,000 unit Piperacillin Sod/Tazobactam (Sod 2.25 gm/ Dextrose) 50 mls @ 100 mls/hr IVPB Q8H-IV MATTHEW; Protocol Lactated Ringer's (Lactated Ringers Solution) 1,000 ml in 1,000 mls @ 125 mls/ hr IV ASDIR MATTHEW Ondansetron HCl (Zofran Injection) 4 mg IVPUSH Q6H PRN PRN Reason: NAUSEA AND/OR VOMITING Oxycodone HCl (Roxicodone -) 5 mg PO Q4H PRN PRN Reason: PAIN LEVEL 1-5 - Objective Vital Signs: Vital Signs Temperature 98.8 F 12/13/18 14:00 Pulse Rate 68 12/13/18 14:00 Respiratory Rate 18 12/13/18 14:00 Blood Pressure 106/59 L 12/13/18 14:00 O2 Sat by Pulse Oximetry (%) 96 12/12/18 21:00 Constitutional: Yes: Well Nourished Cardiovascular: Yes: WNL Respiratory: Yes: WNL Gastrointestinal: Yes: WNL Labs: CBC, BMP 12/13/18 06:11 12/13/18 06:11 INR, PTT INR 1.27 (0.82-1.09) H 12/12/18 07:45 Assessment/Plan no adverse effect of anesthetic, pain controlled, dept of anesthesiology will sign off care at this time
[2018-12-13] MEDS: LACTATED RINGERS SOLUTION 1,000 ML/1,000 ML INFUS.BAG IV SCH (15:41)
[2018-12-13] MEDS: PIPERACILLIN/TAZOB 2.25 GM 2.25 GM in DEXTROSE 5%-WATER - 50 ML IVPB SCH (17:10)
[2018-12-13] MEDS ORDERED: PIPERACILLIN/TAZOB 3.375 GM 3.375 GM in DEXTROSE 5%-WATER - 50 ML IVPB SCH (18:00)
[2018-12-14] MEDS: HEPARIN NA (PORCINE) 5,000 UNITS/ML 1ML VIAL SQ SCH ×3 (00:01→16:00)
[2018-12-14] MEDS ORDERED: PIPERACILLIN/TAZOBACTAM 2.25 GM VIAL IVPB ONE ×3 (01:41→17:02)
[2018-12-14] MEDS ORDERED: DEXTROSE 5%-WATER - 50 ML IVPB ONE ×3 (01:41→17:02)
[2018-12-14] MEDS: PIPERACILLIN/TAZOB 2.25 GM 2.25 GM in DEXTROSE 5%-WATER - 50 ML IVPB SCH ×3 (02:02→17:10)
[2018-12-14 08:04] LABS: BASO % 0.7 % (0-2.0); EOS % 3.4 % (0-4.5); HEMATOCRIT 40.2 % (35.4-49); HEMOGLOBIN 12.4 GM/dL (11.7-16.9); LYMPH % 13.9 % (8-40); MCH 23.3 pg (25.7-33.7); MEAN CELL VOLUME 75.1 fl (80-96); MEAN PLT VOLUME 8.5 fl (7.5-11.1); MONO % 9.2 % (3.8-10.2); NEUT % 72.8 % (42.8-82.8); PLATELET COUNT 271 K/MM3 (134-434); RBC 5.35 M/mm3 (4.00-5.60); RDW 20.3 % (11.9-15.9); WHITE BLOOD COUNT 12.3 K/mm3 (4.0-10.0)
[2018-12-14 08:33] LABS: BILIRUBIN,TOTAL 0.8 mg/dL (0.2-1); BLOOD UREA NITROGEN 27.8 mg/dL (7-18); CALCIUM 8.3 mg/dL (8.5-10.1); CREATININE 1.5 mg/dL (0.55-1.3); MAGNESIUM 2.2 mg/dL (1.8-2.4); POTASSIUM 4.1 mmol/L (3.5-5.1); TOT PROT 6.1 g/dl (6.4-8.2)
--- NOTE | 2018-12-14 09:28 | PN ---
Progress Note (short form) - Note Progress Note: POD #1 repair incarcerated right inguinal hernia w/mesh Patient seen and examined at bedside with no complaints. Patient states he has been urinating without difficulty, and his pain is controlled. He has been OOB ambulating without assistance and tolerating his clear liquid diet. He denies any CP, SOB, N/V, fever or chills. WBCs trending down. Vital Signs Temp 98.1 F 10 07:12 Pulse 52 L 12/14/18 07:12 Resp 20 12/14/18 07:12 BP 106/56 L 12/14/18 07:12 Pulse Ox 98 10 09:00 Intake & Output 12/13/18 12/13/18 12/14/18 11:59 23:59 11:59 Intake Total 1475 Output Total 350 Balance -350 1475 Intake: IV 1375 LACTATED RINGERS SOLUTION 1375 1,000 ml In 1,000 ml @ 125 mls/hr IV ASDIR MATTHEW Rx#:[id number] IVPB 100 Output: Urine 350 Void 350 Other: Voiding Method Urinal Urinal # Unmeasured Voids Void 1 Bowel Movement Yes Yes Yes # Bowel Movements 1 1 CBC, BMP 10/06/29 07:33 12/14/18 07:33 PE: A&Ox3, NAD Unlabored resp on RA ABD: Obese, soft, NT/ ND. Dressing c/d/i with surrounding tissue intact, no tracking erythema or active d/c. mild edema. B/L LE compartments soft, supple and non-tender to palpation with +2 DP pulses. Problem List - Problems (1) Incarcerated right inguinal hernia Assessment/Plan: POD #2 doing well with slight elevation in WBCs, afebrile. -advance to regular diet -OOB as tolerated -encourage IS -d/c planning -F/u with Dr Jett as out patient. Evaluation and plan discussed with Dr Jett Code(s): K40.30 - UNIL INGUINAL HERNIA, W OBST, W/O GANGR, NOT SPCF RECUR
[2018-12-14] MEDS: LACTATED RINGERS SOLUTION 1,000 ML/1,000 ML INFUS.BAG IV SCH ×2 (10:15→18:08)
--- NOTE | 2018-12-14 10:45 | PN ---
Progress Note, Physician History of Present Illness: stable no issues - Current Medication List Current Medications: Active Medications Docusate Sodium (Colace -) 100 mg PO TID [facility]END[facility] TO [facility] Heparin Sodium (Porcine) (Heparin -) 5,000 unit SQ TID@0000,0800,1600 [facility] Last Admin: 12/14/18 08:27 Dose: 5,000 unit Piperacillin Sod/Tazobactam (Sod 2.25 gm/ Dextrose) 50 mls @ 100 mls/hr IVPB Q8H-IV MATTHEW; Protocol Last Admin: 12/14/18 09:36 Dose: 100 mls/hr Lactated Ringer's (Lactated Ringers Solution) 1,000 ml in 1,000 mls @ 125 mls/ hr IV ASDIR MATTHEW Last Admin: 12/13/18 15:41 Dose: Not Given Ondansetron HCl (Zofran Injection) 4 mg IVPUSH Q6H PRN PRN Reason: NAUSEA AND/OR VOMITING Oxycodone HCl (Roxicodone -) 5 mg PO Q4H PRN PRN Reason: PAIN LEVEL 1-5 - Objective Vital Signs: Vital Signs Temperature 98.1 F 12/14/18 07:12 Pulse Rate 52 L 12/14/18 07:12 Respiratory Rate 20 12/14/18 07:12 Blood Pressure 106/56 L 12/14/18 07:12 O2 Sat by Pulse Oximetry (%) 98 12/13/18 09:00 Constitutional: Yes: No Distress, Calm Cardiovascular: Yes: Regular Rate and Rhythm Respiratory: Yes: Regular, CTA Bilaterally Gastrointestinal: Yes: Normal Bowel Sounds, Soft Musculoskeletal: Yes: WNL Extremities: Yes: WNL Neurological: Yes: Alert Psychiatric: Yes: Alert Labs: CBC, BMP 12/14/18 07:33 12/14/18 07:33 INR, PTT INR 1.27 (0.82-1.09) H 12/12/18 07:45 Assessment/Plan 78 year-old male with a PMH significant for polycythemia vera and BPH, post op now Right inguinal incarcerated hernia letty Polycythemia vera BPH leukocytosis plan continue abx will deescalate will d/w the team rest as per the team
--- NOTE | 2018-12-14 12:59 | PN ---
Physical Exam: SUBJECTIVE: Patient seen and examined at the bedside. denies any abdominal pain, only reports feeling soreness. tolerating diet. OBJECTIVE: diet advanced per surgery wbc trending down Vital Signs Period Temp Pulse Resp BP Sys/Yung Pulse Ox Last 24 Hr 98.1 F-99.0 F 52-68 18-20 102-108/55-60 98 GENERAL: The patient is awake, alert, and fully oriented, in no acute distress. HEAD: Normal with no signs of trauma. EYES: PERRL, extraocular movements intact, sclera anicteric, conjunctiva clear. No ptosis. ENT: Ears normal, nares patent, oropharynx clear without exudates, moist mucous membranes. NECK: Trachea midline, full range of motion, supple. LUNGS: Breath sounds equal, clear to auscultation bilaterally HEART: Regular rate and rhythm ABDOMEN: mildly distended, hypoactive bowels sounds, had loose bm today EXTREMITIES: no edema. NEUROLOGICAL: Normal speech, gait not observed. PSYCH: Normal mood, normal affect. SKIN: Warm, dry, normal turgor, no rashes or lesions noted Laboratory Results - last 24 hr 12/14/18 12/14/18 07:33 07:33 WBC 12.3 H RBC 5.35 Hgb 12.4 Hct 40.2 MCV 75.1 L MCH 23.3 L MCHC 31.0 L RDW 20.3 H Plt Count 271 MPV 8.5 Absolute Neuts (auto) 9.0 H Neutrophils % 72.8 Lymphocytes % 13.9 D Monocytes % 9.2 Eosinophils % 3.4 D Basophils % 0.7 Nucleated RBC % 0 Sodium 143 Potassium 4.1 Chloride 110 H Carbon Dioxide 28 Anion Gap 6 L BUN 27.8 H Creatinine 1.5 H Est GFR (CKD-EPI)AfAm 51.31 Est GFR (CKD-EPI)NonAf 44.27 Random Glucose 89 Calcium 8.3 L Magnesium 2.2 Total Bilirubin 0.8 AST 16 ALT 20 Alkaline Phosphatase 48 Total Protein 6.1 L Albumin 3.0 L Active Medications Generic Name Dose Route Start Last Admin Trade Name Freq PRN Reason Stop Dose Admin Docusate Sodium 100 mg 12/14/18 14:00 Colace - PO TID [facility] Heparin Sodium (Porcine) 5,000 unit 12/13/18 08:00 12/14/18 08:27 Heparin - SQ 5,000 unit TID@0000,0800,1600 MATTHEW Administration Piperacillin Sod/Tazobactam 50 mls @ 100 mls/hr 12/13/18 18:00 12/14/18 09:36 Sod 2.25 gm/ Dextrose IVPB 100 mls/hr Q8H-IV MATTHEW Administration Protocol Lactated Ringer's 1,000 ml in 1,000 mls @ 125 mls/hr 12/13/18 10:15 12/13/18 15:41 Lactated Ringers Solution IV Not Given ASDIR MATTHEW Ondansetron HCl 4 mg 12/12/18 18:13 Zofran Injection IVPUSH Q6H PRN NAUSEA AND/OR VOMITING Oxycodone HCl 5 mg 12/12/18 18:13 Roxicodone - PO Q4H PRN PAIN LEVEL 1-5 ASSESSMENT/PLAN: Problem List - Problems (1) Incarcerated right inguinal hernia Assessment/Plan: POD #2 WBC trending down, no fevers, no malaise. on zosyn, to be de escalated per id diet advanced to regular oob with assistance trend labs incentive spirometer Code(s): K40.30 - UNIL INGUINAL HERNIA, W OBST, W/O GANGR, NOT SPCF RECUR (2) Leukocytosis Assessment/Plan: monitor. afebrile Code(s): D72.829 - ELEVATED WHITE BLOOD CELL COUNT, UNSPECIFIED (3) DVT prophylaxis Assessment/Plan: SCDs Code(s): [id number] - (4) CALVIN (acute kidney injury) Assessment/Plan: elevated creat 1.5, baseline 1.2 continue hydration not retaining urine per bladder scan Code(s): N17.9 - ACUTE KIDNEY FAILURE, UNSPECIFIED (5) Prophylactic measure Assessment/Plan: fen LR 100 regular pain management full code Code(s): Z29.9 - ENCOUNTER FOR PROPHYLACTIC MEASURES, UNSPECIFIED Visit type - Emergency Visit Emergency Visit: Yes ED Registration Date: 12/12/18 Care time: The patient presented to the Emergency Department on the above date and was hospitalized for further evaluation of their emergent condition. - New Patient This patient is new to me today: No - Critical Care Critical Care patient: No - Discharge Referral Referred to [facility] Med P.C.: No
[2018-12-14] MEDS: DOCUSATE SODIUM 100 MG CAPSULE (FP) PO SCH ×2 (13:11→21:20)
[2018-12-15] MEDS: HEPARIN NA (PORCINE) 5,000 UNITS/ML 1ML VIAL SQ SCH ×2 (00:21→10:42)
[2018-12-15] MEDS ORDERED: PIPERACILLIN/TAZOBACTAM 2.25 GM VIAL IVPB ONE ×2 (01:56→09:19)
[2018-12-15] MEDS ORDERED: DEXTROSE 5%-WATER - 50 ML IVPB ONE ×2 (01:56→09:19)
[2018-12-15] MEDS: PIPERACILLIN/TAZOB 2.25 GM 2.25 GM in DEXTROSE 5%-WATER - 50 ML IVPB SCH ×2 (02:21→10:42)
[2018-12-15] MEDS: DOCUSATE SODIUM 100 MG CAPSULE (FP) PO SCH ×2 (06:08→13:25)
[2018-12-15 08:26] LABS: BASO % 0.8 % (0-2.0); EOS % 5.7 % (0-4.5); HEMATOCRIT 39.9 % (35.4-49); HEMOGLOBIN 12.4 GM/dL (11.7-16.9); LYMPH % 14.5 % (8-40); MCH 23.5 pg (25.7-33.7); MEAN CELL VOLUME 75.7 fl (80-96); MEAN PLT VOLUME 8.9 fl (7.5-11.1); MONO % 6.7 % (3.8-10.2); NEUT % 72.3 % (42.8-82.8); PLATELET COUNT 257 K/MM3 (134-434); RBC 5.28 M/mm3 (4.00-5.60); RDW 20.4 % (11.9-15.9); WHITE BLOOD COUNT 11.7 K/mm3 (4.0-10.0)
[2018-12-15 08:31] LABS: ALBUMIN 2.9 g/dl (3.4-5.0); BILIRUBIN,TOTAL 0.5 mg/dL (0.2-1); BLOOD UREA NITROGEN 18.7 mg/dL (7-18); CALCIUM 7.8 mg/dL (8.5-10.1); CREATININE 1.1 mg/dL (0.55-1.3); MAGNESIUM 2.2 mg/dL (1.8-2.4); TOT PROT 5.7 g/dl (6.4-8.2)
--- NOTE | 2018-12-15 08:32 | PN ---
Progress Note, Physician History of Present Illness: stable no new issues - Current Medication List Current Medications: Active Medications Docusate Sodium (Colace -) 100 mg PO TID [facility] Last Admin: 12/15/18 06:08 Dose: Not Given Heparin Sodium (Porcine) (Heparin -) 5,000 unit SQ TID@0000,0800,1600 [facility] Last Admin: 12/15/18 00:21 Dose: 5,000 unit Piperacillin Sod/Tazobactam (Sod 2.25 gm/ Dextrose) 50 mls @ 100 mls/hr IVPB Q8H-IV MATTHEW; Protocol Last Admin: 12/15/18 02:21 Dose: 100 mls/hr Lactated Ringer's (Lactated Ringers Solution) 1,000 ml in 1,000 mls @ 125 mls/ hr IV ASDIR MATTHEW Last Admin: 12/14/18 18:08 Dose: 125 mls/hr Ondansetron HCl (Zofran Injection) 4 mg IVPUSH Q6H PRN PRN Reason: NAUSEA AND/OR VOMITING Oxycodone HCl (Roxicodone -) 5 mg PO Q4H PRN PRN Reason: PAIN LEVEL 1-5 - Objective Vital Signs: Vital Signs Temperature 98.2 F 12/15/18 06:25 Pulse Rate 54 L 12/15/18 06:25 Respiratory Rate 20 12/15/18 06:25 Blood Pressure 116/67 12/15/18 06:25 O2 Sat by Pulse Oximetry (%) 98 12/14/18 09:00 Constitutional: Yes: No Distress, Calm Cardiovascular: Yes: S1, S2 Respiratory: Yes: Regular, CTA Bilaterally Gastrointestinal: Yes: Normal Bowel Sounds, Soft Musculoskeletal: Yes: WNL Extremities: Yes: WNL Neurological: Yes: Alert, Other Psychiatric: Yes: Alert Labs: CBC, BMP 12/15/18 07:25 INR, PTT INR 1.27 (0.82-1.09) H 12/12/18 07:45 Assessment/Plan 78 year-old male with a PMH significant for polycythemia vera and BPH, post op now Right inguinal incarcerated hernia letty Polycythemia vera BPH leukocytosis plan continue abx await for labs
[2018-12-15] MEDS: LACTATED RINGERS SOLUTION 1,000 ML/1,000 ML INFUS.BAG IV SCH (10:42)
--- NOTE | 2018-12-15 11:47 | DS ---
Physical Exam: SUBJECTIVE: Patient seen and examined at the bedside. denies any abdominal pain, only reports feeling soreness. tolerating diet. OBJECTIVE: for d/c home with 5 more days of augmentin Patient is a 78 year old male with a past medical history significant for polycythemia vera and BPH. He presented to the ED for evaluation of right groin pain, nausea, and vomiting x [address] imaging shows a moderate size right inguinal hernia containing fat and small bowel loops. He is s/p surgical repair incarcerated right inguinal hernia w/mesh on 12/[address] Jett. Vital Signs Period Temp Pulse Resp BP Sys/Yung Pulse Ox Last 24 Hr 98.2 F-98.7 F 54-65 20-20 98-116/42-67 98 PHYSICAL EXAM GENERAL: The patient is awake, alert, and fully oriented, in no acute distress. HEAD: Normal with no signs of trauma. EYES: PERRL, extraocular movements intact, sclera anicteric, conjunctiva clear. No ptosis. ENT: Ears normal, nares patent, oropharynx clear without exudates, moist mucous membranes. NECK: Trachea midline, full range of motion, supple. LUNGS: Breath sounds equal, clear to auscultation bilaterally HEART: Regular rate and rhythm ABDOMEN: mildly distended, hypoactive bowels sounds, had loose bm today EXTREMITIES: no edema. NEUROLOGICAL: Normal speech, gait not observed. PSYCH: Normal mood, normal affect. SKIN: Warm, dry, normal turgor, no rashes or lesions noted LABS Laboratory Results - last 24 hr 12/15/18 12/15/18 07:25 07:25 WBC 11.7 H RBC 5.28 Hgb 12.4 Hct 39.9 MCV 75.7 L MCH 23.5 L MCHC 31.0 L RDW 20.4 H Plt Count 257 MPV 8.9 Absolute Neuts (auto) 8.4 H Neutrophils % 72.3 Lymphocytes % 14.5 Monocytes % 6.7 Eosinophils % 5.7 H Basophils % 0.8 Nucleated RBC % 0 Sodium 139 Potassium 4.0 Chloride 110 H Carbon Dioxide 22 Anion Gap 7 L BUN 18.7 H Creatinine 1.1 Est GFR (CKD-EPI)AfAm 74.65 Est GFR (CKD-EPI)NonAf 64.41 Random Glucose 81 Calcium 7.8 L Magnesium 2.2 Total Bilirubin 0.5 AST 15 ALT 20 Alkaline Phosphatase 50 Total Protein 5.7 L Albumin 2.9 L HOSPITAL COURSE: Date of Admission:12/12/18 Date of Discharge: 12/15/18 Minutes to complete discharge: 40 Discharge Summary Problems reviewed: Yes Reason For Visit: INCARCERATED HERNIA Current Active Problems CALVIN (acute kidney injury) (Acute) Incarcerated right inguinal hernia (Acute) Leukocytosis (Acute) Prophylactic measure (Acute) Condition: Stable - Instructions Diet, Activity, Other Instructions: Dr. Jett Discharge Instructions Dear MARTHA BELTRÁN, Post Operative Instructions Physical activity Resume your normal everyday activity as tolerated no heavy lifting or exercise until seen by your surgeon. You may walk unlimited amounts of and climb stairs. You may resume driving the car when you feel safe and comfortable behind the wheel. Wound care If you have a bandage, leave it on, and keep dry for 48 - 72 hours. After that time discard the outer bandage. If there are tapes on the skin under the outer bandage, leave them in place. They will peel off in the next 7 to 10 days. Do Not peel them off. You may shower 2 days after surgery. If there are tapes present on the skin, they can get wet. Diet There are no dietary restrictions. Eat healthy, high-fiber foods. Drink 6 to 8 glasses of liquid each day. This will assist in keeping your bowels are regular. Pain management You may take Tylenol or acetaminophen or Ibuprofen (for example, Motrin, Advil etc.) Any pain prescription medication ordered should be taken as prescribed for moderate to severe pain. Call Dr. Jett for any of the following: Severe pain not relieved by medication Fever of 101 or higher Excessive bleeding or drainage on dressing Inability to urinate Call the office at [phone] for a post operative appointment in 7 - 10 days. do not start aspirin daily until cleared by your surgeon Disposition: HOME - Home Medications Comprehensive Discharge Medication List: Ambulatory Orders Amoxicillin/Potassium Clav [Augmentin 500-125 Tablet] 1 each PO BID #10 tablet 12/15/18 Docusate Sodium [Colace -] 100 mg PO TID capsule 12/15/18 Problem List - Problems (1) Incarcerated right inguinal hernia Assessment/Plan: POD #3 WBC trending down to 11.7 no fevers, no malaise. discussed with ID. Surinder to d/c on oral augmentin. tolerating diet for outpatient follow up with Dr. Jett. Problems reviewed: Yes Code(s): K40.30 - UNIL INGUINAL HERNIA, W OBST, W/O GANGR, NOT SPCF RECUR (2) Leukocytosis Assessment/Plan: trending down. monitor. afebrile treated with zosyn, d/c on augmentin 500 bid x 5 more days with a pro biotic. Problems reviewed: Yes Code(s): D72.829 - ELEVATED WHITE BLOOD CELL COUNT, UNSPECIFIED (3) DVT prophylaxis Assessment/Plan: SCDs Problems reviewed: Yes Code(s): YOD9898 - (4) CALVIN (acute kidney injury) Assessment/Plan: resolved with ivf. Problems reviewed: Yes Code(s): N17.9 - ACUTE KIDNEY FAILURE, UNSPECIFIED (5) Prophylactic measure Assessment/Plan: d/c home Problems reviewed: Yes Code(s): Z29.9 - ENCOUNTER FOR PROPHYLACTIC MEASURES, UNSPECIFIED This patient is new to me today: No Emergency Visit: Yes ED Registration Date: 12/12/18 Care time: The patient presented to the Emergency Department on the above date and was hospitalized for further evaluation of their emergent condition. Critical Care patient: No - Discharge Referral Referred to [facility] Med P.C.: No
[2018-12-15 15:17] VITALS: BP 108/53; PULSE 61; TEMP 98.5
--- NOTE | 2018-12-18 10:09 | PATH ---
Surgical Pathology Report Patient Name: MARTHA BELTRÁN Med. Rec. #: [id number] /Age/Gender: 1940 (Age: 78) / M Account: [id number] Location: [facility] MED/SURG Taken: 12/12/2018 Received: 12/14/2018 Reported: 12/18/2018 Physicians: Tre Power M.D. Specimen(s) Received RIGHT INGUINALHERNIA SAC Clinical History Incarcerated right inguinal hernia Final Diagnosis RIGHT INGUINAL HERNIA SAC, EXCISION: CONSISTENT WITH HERNIA SAC. Electronically Signed Keven Castillo M.D. Gross Description Received in formalin, labeled "right inguinal hernia sac" it's a portion of argueta, irregular membranous tissue measuring 7.0 x 3.6 x 0.11cm. The specimen is sectioned and access services representative sections are submitted in one cassette. EVANS/12/14/2018 john/12/14/2018
== END 2018-12-15 14:50 | disposition home or self-care (01) | DRG 351 ==
LOC: SUPCPDRO 07:06 → FER 07:06 → J8W 13:46
PROVIDERS: ADMIT Internal Medicine; ATTEND Nurse Practitioner Family
PROC: 0YU50JZ Supplement Right Inguinal Region with Synthetic Substitute, Open Approach (ICD-10-PCS; principal; 2018-12-12 12:00)
DX: K40.30 Unilateral inguinal hernia, with obstruction, without gangrene, not specified as recurrent (principal); N17.9 Acute kidney failure, unspecified; D72.829 Elevated white blood cell count, unspecified; N40.0 Benign prostatic hyperplasia without lower urinary tract symptoms; D45 Polycythemia vera
CPT/HCPCS: 36415; 71045-TC-FY; 74176-TC; 80053; 81003; 81015; 82150; 83605; 83690; 83735; 84484; 85025; 85610; 86850; 86900; 86901; 87040; 87086; 88302-TC; 93005; 94760; 99284-25; J0131; J1644; J7030